=== PATIENT | female | born 1955 | race Caucasian/White ===

== ENCOUNTER 2021-12-09 12:58 | Emergency (ER) | payer MEDICARE, MEDICAID ==
[~2021-12-09] VITALS: Ht 165.1 cm; Wt 108.6 kg
[~2021-12-09 12:58] MED LIST: ASPI-630 PO; BUME2TAB3 PO; CLOP75TA PO; CRESTOR5 MG PO; DULO20CA PO; FERR236T2 PO; GABA300C18 PO; INSU100I13 SQ; INSU100V6 SQ; ISOS10TA4 PO; LISI1TAB35 PO; METO50TA6 PO; MONT10TA49 PO; MULT-735 PO; NORT25CA PO; NYST15CR TP; OMEG1CAP27 PO; PANT40TA77 PO
[2021-12-09] MEDS ORDERED: HYDROcodone/APAP 5/325MG 1 TAB TABLET PO ONE (13:15)
--- NOTE | 2021-12-09 13:28 | RAD ---
EXAMINATION: XR SHOULDER_RIGHT 2+ VIEWS. HISTORY: 66 years Female Reason: FELL RIGHT SHOUDLER INJURY / Spl. Instructions: / History: . COMPARISON: None. FINDINGS: There is an impacted fracture at the surgical neck of the right humerus with the comminution and frac ture extension into the greater tuberosity. No significant displacement or angulation otherwise. No s ubluxation or dislocation at the glenohumeral or acromioclavicular joints. Mild degenerative changes in the right the common clavicular joint noted. IMPRESSION: Impacted the right humerus neck fracture with comminution. Electronically signed by: Brian Leija MD (12/09/2021 1:26 PM) [id number]
--- NOTE | 2021-12-09 13:51 | PHYS DOC ---
Past Medical History Past Medical History: Diabetes-Type II, Hypertension Additional Past Medical Histor: LBBB, AORTIC VALVE PROLAPSE Past Surgical History: Cholecystectomy, Pacemaker Additional Past Surgical Histo: RECONSTRUCTIVE BOWEL SURGERY Smoking Status: Former Smoker Alcohol Use: Occasionally General Adult EDM: Chief Complaint: SHOULDER INJURY HPI: HPI: Patient is a 66 year old female who was brought here by EMS for evaluation of right shoulder injury. Patient says she was walking across the lobby area in the [facility], she tripped on the rug, landed on her right shoulder. Patient complains of severe right shoulder pain. Patient denies any back pain, no hip pain, no pelvic pain. Patient denies any head or neck injury. Patient is on Coumadin due to history of aortic valve replacement patient denies any chest pain or any headache prior to the accident Review of Systems: Review of Systems: Constitutional: Denies fever or chills. [] Eyes: Denies change in visual acuity. [] HENT: Denies nasal congestion or sore throat. [] Respiratory: Denies cough or shortness of breath. [] Cardiovascular: Denies chest pain or edema. [] GI: Denies abdominal pain, nausea, vomiting, bloody stools or diarrhea. [] : Denies dysuria. [] Musculoskeletal: Positive for right shoulder pain Integument: Denies rash. [] Neurologic: Denies headache, focal weakness or sensory changes. [] Endocrine: Denies polyuria or polydipsia. [] Lymphatic: Denies swollen glands. [] Psychiatric: Denies depression or anxiety. [] Heart Score: C/O Chest Pain: N/A Risk Factors: Risk Factors: DM, Current or recent (<one month) smoker, HTN, HLP, family history of CAD, obesity. Risk Scores: Score 0 - 3: 2.5% MACE over next 6 weeks - Discharge Home Score 4 - 6: 20.3% MACE over next 6 weeks - Admit for Clinical Observation Score 7 - 10: 72.7% MACE over next 6 weeks - Early Invasive Strategies Current Medications: Current Medications Medications (Trade) Dose Ordered Sig/Gilma Start Time Stop Time Status Last Admin Dose Admin Acetaminophen/ Hydrocodone Bitart (Lortab 5/325) 2 tab 1X ONCE 12/09/21 13:15 12/09/21 13:18 DC 12/09/21 13:22 2 TAB Allergies: Allergies: Allergies Coded Allergies Type Severity Reaction Last Updated Verified ciprofloxacin Allergy Unknown 11/15/19 Yes hydromorphone Allergy Unknown 11/15/19 Yes sulfamethoxazole Allergy Unknown 11/15/19 Yes trimethoprim Allergy Unknown 11/15/19 Yes Physical Exam: PE: Constitutional: Well developed, well nourished, no acute distress, non-toxic appearance. [] HENT: Normocephalic, atraumatic, bilateral external ears normal, oropharynx moist, no oral exudates, nose normal. [] Eyes: PERRLA, EOMI, conjunctiva normal, no discharge. [] Neck: Normal range of motion, no tenderness, supple, no stridor. [] Cardiovascular:Heart rate regular rhythm, no murmur [] Lungs & Thorax: Bilateral breath sounds clear to auscultation [] Abdomen: Bowel sounds normal, soft, no tenderness, no masses, no pulsatile masses. [] Skin: Warm, dry, no erythema, no rash. [] Back: No tenderness, no CVA tenderness. [] Extremities: Right shoulder tender to palpation, full range of motion with pain. Neurologic: Alert and oriented X 3, normal motor function, normal sensory function, no focal deficits noted. [] Psychologic: Affect normal, judgement normal, mood normal. [] Current Patient Data: Vital Signs: Vital Signs Date Time Temp Pulse Resp B/P (MAP) Pulse Ox O2 Delivery O2 Flow Rate FiO2 12/09/21 13:22 21 97 Room Air 12/09/21 12:58 98.3 86 207/89 (128) 98.3 EKG: EKG: [] Radiology/Procedures: Radiology/Procedures: [facility] [address] [place] [address] IMAGING REPORT Signed PATIENT: PAULINA DOVE ACCOUNT: [id number] : 1955 LOCATION: ER AGE: 66 SEX: F EXAM STATUS: PRE ER ORD. PHYSICIAN: ELADIA RSETREPO DO REASON: FELL RIGHT SHOUDLER INJURY PROCEDURE: SHOULDER 2+V RIGHT EXAMINATION: XR SHOULDER_RIGHT 2+ VIEWS. HISTORY: 66 years Female Reason: FELL RIGHT SHOUDLER INJURY / Spl. Instructions: / History: . COMPARISON: None. FINDINGS: There is an impacted fracture at the surgical neck of the right humerus with the comminution and fracture extension into the greater tuberosity. No significant displacement or angulation otherwise. No subluxation or dislocation at the glenohumeral or acromioclavicular joints. Mild degenerative changes in the right the common clavicular joint noted. IMPRESSION: Impacted the right humerus neck fracture with comminution. Electronically signed by: Arlet Leija MD (12/09/2021 1:26 PM) [id number] DICTATED and SIGNED BY: ARLET LEIJA MD DATE: 12/09/21 [id number] 0 [facility] [address] [place] [address] IMAGING REPORT Signed PATIENT: PAULINA DOVE ACCOUNT: [id number] : 1955 LOCATION: ER AGE: 66 SEX: F EXAM STATUS: REG ER ORD. PHYSICIAN: ELADIA RESTREPO DO REASON: fell , on COUMADIN PROCEDURE: CT HEAD WO CONTRAST PQRS Compliance Statement: One or more of the following individualized dose reduction techniques were utilized for this examination: 1. Automated exposure control 2. Adjustment of the mA and/or kV according to patient size 3. Use of iterative reconstruction technique CT HEAD WITHOUT CONTRAST History: Reason: fell, on COUMADIN, right shoulder pain. Comparison: None. Technique: Axial images are obtained of the head from the skull base through the vertex without IV contrast. Findings: No mass-effect, midline shift, extra-axial fluid collection, hemorrhage, or obvious acute infarction is identified. Basilar cisterns are patent. The ventricles and sulci are normal for patient age. There is mild periventricular white matter hypoattenuation. This is a nonspecific finding but is commonly due to chronic small vessel ischemic disease. There is old right basal ganglia lacunar infarct. Bone windows demonstrate no acute calvarial abnormality. The right maxillary sinus is mostly opacified. There is mucosal thickening of the bilateral ethmoid sinuses. Mastoid air cells are well aerated. IMPRESSION: 1. No acute intracranial abnormality. 2. Old right basal ganglia lacunar infarct. 3. Mild periventricular white matter changes probably due to chronic small vessel ischemic disease. Electronically signed by: Jos Juarez MD (12/09/2021 2:03 PM) [facility] DICTATED and SIGNED BY: JOS JUAREZ MD DATE: 12/09/21 [id number] 0 Course & Med Decision Making: Course & Med Decision Making Pertinent Labs and Imaging studies reviewed. (See chart for details) Patient is a 66-year-old female who present to ER for evaluation of right shoulder injury after she fell. X-ray show right femoral neck fracture. Patient was placed on a sling, patient felt much better. Discussed with the orthopedic surgeon on-call Dr. Schuster who recommend to see patient in the clinic next week Dragon Disclaimer: Dragon Disclaimer: This electronic medical record was generated, in whole or in part, using a voice recognition dictation system. Departure Departure Impression: Primary Impression: Closed fracture of neck of right humerus Disposition: HOME / SELF CARE / HOMELESS Condition: STABLE Referrals: ANTWON MOLINA MD (PCP) SANDRA SCHUSTER Jr. DO Please call this orthopedic surgeon tomorrow for follow up next week. Patient Instructions: Humerus Fracture, Treated with Immobilization Additional Instructions: Thank you for visiting our Emergency Department. We appreciate you trusting us with your care. If any additional problems come up don't hesitate to return to visit us. Please follow up with your primary care provider so they can plan additional care if needed and know about the problem that you had. If symptoms worsen come back to the Emergency Department. Any concerning symptoms that start such as chest pain, shortness of air, weakness or numbness on one side of the body, running high fevers or any other concerning symptoms return to the ER. Scripts Hydrocodone Bit/Acetaminophen (HYDROCODONE-APAP 5-325 ) 1 Tab Tablet 1 TAB PO PRN Q6HRS PRN for PAIN, #20 TAB 0 Refills Prov: ELADIA RESTREPO DO 12/09/21 ELADIA RESTREPO DO Dec 09, 2021 13:51
--- NOTE | 2021-12-09 14:05 | RAD ---
PQRS Compliance Statement: One or more of the following individualized dose reduction techniques were utilized for this examinat ion: 1. Automated exposure control 2. Adjustment of the mA and/or kV according to patient size 3. Use of iterative reconstruction technique CT HEAD WITHOUT CONTRAST History: Reason: fell, on COUMADIN, right shoulder pain. Comparison: None. Technique: Axial images are obtained of the head from the skull base through the vertex without IV co ntrast. Findings: No mass-effect, midline shift, extra-axial fluid collection, hemorrhage, or obvious acute infarction is identified. Basilar cisterns are patent. The ventricles and sulci are normal for patient age. There is mild periventricular white matter hypoa ttenuation. This is a nonspecific finding but is commonly due to chronic small vessel ischemic disea se. There is old right basal ganglia lacunar infarct. Bone windows demonstrate no acute calvarial abnormality. The right maxillary sinus is mostly opacified. There is mucosal thickening of the bilateral ethmoid s inuses. Mastoid air cells are well aerated. IMPRESSION: 1. No acute intracranial abnormality. 2. Old right basal ganglia lacunar infarct. 3. Mild periventricular white matter changes probably due to chronic small vessel ischemic disease. Electronically signed by: Jos Juarez MD (12/09/2021 2:03 PM) [facility]
[2021-12-09] MEDS ORDERED: HYDR-2761 PO (14:47)
[2021-12-09 15:00] VITALS: BP 199/84
[2021-12-09] MEDS ORDERED: oxyCODONE IR 5 MG TABLET ONE (15:06)
[2021-12-09] MEDS ORDERED: oxyCODONE IR 5 MG TABLET PO ONE (15:15)
== END 2021-12-09 15:15 | disposition home or self-care (01) ==
LOC: ER 12:58
DX: S72.001A Fracture of unspecified part of neck of right femur, initial encounter for closed fracture (principal); R51.9 Headache, unspecified; E11.9 Type 2 diabetes mellitus without complications; I10 Essential (primary) hypertension; Z87.891 Personal history of nicotine dependence; Z95.0 Presence of cardiac pacemaker; Z88.1 Allergy status to other antibiotic agents; Z88.2 Allergy status to sulfonamides; Z88.5 Allergy status to narcotic agent; W18.09XA Striking against other object with subsequent fall, initial encounter; Y93.01 Activity, walking, marching and hiking; Y92.89 Other specified places as the place of occurrence of the external cause; Y99.8 Other external cause status
CPT/HCPCS: 70450; 73030; 99285; A4565